=== PATIENT | male | born 1950 | race Caucasian/White ===

== ENCOUNTER → 2017-05-13 21:35 | Outpatient (CLI) | payer MEDICARE | END | disposition home or self-care (01) | LOC: D.LABREF 21:35 | DX: N39.0 Urinary tract infection, site not specified (principal); R31.9 Hematuria, unspecified ==

== ENCOUNTER 2017-05-23 05:56 | Day surgery (SDC) | payer MEDICARE ==
[2017-05-22 14:16] LABS: BASOPHILS 0.2 % (0-2); EOSINOPHILS 3.9 % (0-7); HEMATOCRIT 45.9 % (42.0-54.0); HEMOGLOBIN 15.8 g/dL (13.5-17.5); IMMATURE GRANULOCYTES 0.4 % (0-5); LYMPHOCYTES 33.4 % (15-50); MCH 32.3 pg (26.0-34.0); MCHC 34.4 g/dL (31.0-37.0); MCV 93.9 fL (80.0-100.0); MEAN PLATELET VOLUME 10.8 fL (7.4-10.4); MONOCYTES 8.6 % (2-11); NEUTROPHILS 53.5 % (40-80); PLATELET COUNT 184 10x3/uL (130-400); RBC 4.89 10x6/uL (4.20-6.10); RDW 12.9 % (11.5-14.5); WBC 8.2 10x3/uL (4.8-10.8)
[2017-05-22 14:25] LABS: APTT 25.5 SECONDS (22.8-39.4); INR 1.03 (0.85-1.17); PROTIME 13.1 SECONDS (11.6-15.0)
[~2017-05-23] VITALS: Ht 182.9 cm; Wt 90.3 kg
--- NOTE | ~2017-05-23 | OP ---
PATIENT NAME: EMMA KIM MEDICAL RECORD: [id number] :48 LOCATION:[facility] ADMISSION DATE: SURGEON: LEVI MANSFIELD MD DATE OF OPERATION: 05/23/2017 SURGEON: Levi Mansfield MD ANESTHESIA: MAC by Dr. Syed Cee. PREOPERATIVE DIAGNOSIS: Microscopic hematuria. FINDINGS: Obstructive benign prostatic hypertrophy with vascular prostatic urethra. Single ureteral orifices bilaterally. No bladder tumors. PROCEDURES: Cystoscopy. BLOOD LOSS: None. CLINICAL HISTORY: This is a 66-year-old male, former smoker, who had a left radical nephrectomy for renal cell carcinoma in 2010. He also had colon cancer resected in 1979. He was last living in [place], [place] before he came here. His urologist in [place] had started investigations for the microscopic hematuria. He has had a normal PSA level. He had a CT scan of the abdomen and pelvis in February 2017 in [place] and this was normal. He has never smoked. He had urine cytology, which was normal. He comes today to have cystoscopy to complete the hematuria workup. He does not have any significant voiding issues. He is not allergic to any medications and he was given Ance[employer] telephone lineman to the OR. DESCRIPTION OF PROCEDURE: The patient was given IV sedation. He was placed into dorsal lithotomy position and prepped and draped. Lidocaine jelly was inserted into the urethra. A 17-Seneg[place]e cystoscope with 30-degree lens was used for visualization. The penile urethra was normal with no strictures or tumors. Bulbar urethra was quite vascular. Going into the prostatic urethra, it was also quite vascular and there are some papillary inflammatory fronds on the prostatic urethra, which bled as we passed the scope by them. He has bilateral lateral lobe hyperplasia. Bladder neck is also somewhat elevated. Going into the bladder, single ureteral orifices are seen. No bladder tumors were seen. Bladder was mildly trabeculated. The bladder was emptied through the cystoscope sheath and then the scope was removed. I will start him on finasteride to shrink his prostate and the prostatic veins. I will see him back in 1 month's time to check on his symptoms. TRANSINT:[id number] Voice Confirmation ID: [id number] DOCUMENT ID: [id number] LEVI MANSFIELD MD at 1315 CC: [id number] DICTATION DATE: 05/23/17 1614 FLUE LINING DIPPER: 05/23/17 1718 [facility] 05/23/17 [place] [id number] [place] [id number]
[2017-05-23 12:54] VITALS: BP 123/77; Ht 182.9 cm; Wt 90.3 kg
== END 2017-05-23 17:35 | disposition home or self-care (01) ==
LOC: D.OPS 05:56 → D.PAN 11:25 → D.OPS 12:00 → D.PAN 12:00 → D.OPS 17:35
PROVIDERS: Anesthesiology
DX: R31.29 Other microscopic hematuria (principal); N40.1 Benign prostatic hyperplasia with lower urinary tract symptoms; N13.8 Other obstructive and reflux uropathy; N32.89 Other specified disorders of bladder; Z01.812 Encounter for preprocedural laboratory examination

== ENCOUNTER → 2017-08-05 12:34 | Outpatient (CLI) | payer MEDICARE ==
[~2017-08-05 12:34] MED LIST: PROSCAR5 MG PO
== END | disposition home or self-care (01) ==
LOC: D.US 12:34
DX: Z85.528 Personal history of other malignant neoplasm of kidney (principal)

== ENCOUNTER → 2017-09-16 10:24 | Outpatient (CLI) | payer MEDICARE ==
[2017-09-16 11:19] LABS: ANION GAP 11.4 mmol/L (8-16); CALCIUM 8.4 mg/dL (8.5-10.1); CARBON DIOXIDE 25.2 mmol/L (21.0-32.0); CREATININE - SERUM 1.4 mg/dL (0.6-1.3); POTASSIUM - SERUM 4.6 mmol/L (3.5-5.1)
== END | disposition home or self-care (01) ==
LOC: D.LAB 10:15
PROVIDERS: Internal Medicine Gastroenterology
DX: Z85.038 Personal history of other malignant neoplasm of large intestine (principal); Z85.528 Personal history of other malignant neoplasm of kidney

== ENCOUNTER 2017-10-09 10:55 | Day surgery (SDC) | payer MEDICARE ==
[~2017-10-09] VITALS: Ht 182.9 cm; Wt 88.6 kg
--- NOTE | ~2017-10-09 | OP ---
PATIENT NAME: EMMA KIM MEDICAL RECORD: [id number] :48 LOCATION:[facility] ADMISSION DATE: SURGEON: KIMBER ONEIL DO DATE OF OPERATION: 10/09/2017 PROCEDURE: Colonoscopy with polypectomy. INDICATIONS FOR PROCEDURE: Screening colonoscopy and history of malignant tumor of the colon. SCOPE: Olympus video pediatric colonoscope. MEDICATIONS: Propofol 250 mg IV per anesthesia. WITHDRAWAL TIME: 18 minutes. ESTIMATED BLOOD LOSS: Minimal. COMPLICATIONS: None. FINDINGS: Informed consent was given. The patient was made comfortable with the above medication. After reaching an adequate level of sedation by slow IV push, the patient was placed on his left side. A digital rectal examination was performed and revealed some benign prostatic hyperplasia. The endoscope was advanced under direct visualization through the rectum to the terminal ileum. The endoscope was slowly withdrawn and mucosa was carefully examined. The prep quality was excellent. There were 3 polyps visualized on today's examination. They were all benign appearing and sessile and ranged in size from 3-4 mm in diameter. They were all removed using hot forceps in 1 piece and completely retrieved. They were all located in the transverse colon. There was evidence of a prior intervention in the sigmoid region. Findings are consistent with an anastomosis from prior partial colectomy based on his history of malignant tumor. The retroflexion was performed in the rectum with visualization of grade I internal hemorrhoids without bleeding. The endoscope was then withdrawn from the patient. The patient tolerated the procedure well and there were no complications. IMPRESSION: 1. Three transverse polyps as described above removed using hot forceps. 2. Evidence of a prior partial colectomy. 3. Grade I internal hemorrhoids without active bleeding. PLAN AND RECOMMENDATIONS: 1. Discharge home when recovery parameters are met. 2. High fiber diet. 3. Continue current medications. 4. Recall colonoscopy in 3-5 years for ongoing surveillance based on his history of malignant tumor of the colon and personal history of polyps. TRANSINT:[id number] Voice Confirmation ID: [id number] DOCUMENT ID: [id number] OPERATIVE REPORT [id number] EMMA KIM KIMBER ONEIL DO at 1558 CC: [id number] DICTATION DATE: 10/09/17 1402 COUNSELOR MARRIAGE AND FAMILY: 10/09/17 1607 [facility] 10/09/17 [facility] [address] [place] [address]
[2017-10-09] MEDS ORDERED: PROSCAR5 MG PO (11:37)
[2017-10-09 11:58] VITALS: BP 115/81; Ht 182.9 cm; Wt 88.6 kg
[2017-10-09 12:06] LABS: BASOPHILS 0.1 % (0-2); EOSINOPHILS 2.9 % (0-7); HEMATOCRIT 42.8 % (42.0-54.0); HEMOGLOBIN 14.8 g/dL (13.5-17.5); IMMATURE GRANULOCYTES 0.1 % (0-5); LYMPHOCYTES 29.3 % (15-50); MCH 31.4 pg (26.0-34.0); MCHC 34.6 g/dL (31.0-37.0); MCV 90.7 fL (80.0-100.0); MONOCYTES 9.6 % (2-11); PLATELET COUNT 175 10x3/uL (130-400); RBC 4.72 10x6/uL (4.20-6.10); RDW 12.7 % (11.5-14.5); WBC 7.2 10x3/uL (4.8-10.8)
[2017-10-09 12:20] LABS: ANION GAP 14.1 mmol/L (8-16); CALCIUM 8.8 mg/dL (8.5-10.1); CARBON DIOXIDE 24.2 mmol/L (21.0-32.0); CREATININE - SERUM 1.3 mg/dL (0.6-1.3); POTASSIUM - SERUM 4.3 mmol/L (3.5-5.1)
== END 2017-10-09 15:32 | disposition home or self-care (01) ==
LOC: D.OPS 10:55
PROVIDERS: Anesthesiology
DX: Z12.11 Encounter for screening for malignant neoplasm of colon (principal); K64.8 Other hemorrhoids; K63.5 Polyp of colon; Z85.038 Personal history of other malignant neoplasm of large intestine; Z18.12 Retained nonmagnetic metal fragments

== ENCOUNTER → 2018-06-27 18:21 | Outpatient (CLI) | payer MEDICARE ==
[2017-10-09 11:58] VITALS: BMI 26.5
== END | disposition home or self-care (01) ==
LOC: D.LABREF 18:21
DX: R31.9 Hematuria, unspecified (principal)

== ENCOUNTER → 2018-07-03 07:58 | Outpatient (CLI) | payer MEDICARE ==
[2017-10-09 11:58] VITALS: BMI 26.5
[2018-07-03 08:46] LABS: CREATININE - SERUM 1.4 mg/dL (0.6-1.3)
== END | disposition home or self-care (01) ==
LOC: D.CT 07:58
PROVIDERS: Urology
DX: Z85.528 Personal history of other malignant neoplasm of kidney (principal)

== ENCOUNTER 2019-11-04 05:55 | Day surgery (SDC) | payer MEDICARE ==
[2019-11-03 13:18] LABS: HEMATOCRIT 44.7 % (42.0-54.0); LYMPHOCYTES 28.6 % (15-50); MCH 30.9 pg (26.0-34.0); MCHC 33.6 g/dL (31.0-37.0); MEAN PLATELET VOLUME 10.2 fL (7.4-10.4); PLATELET COUNT 202 10x3/uL (130-400); RBC 4.86 10x6/uL (4.20-6.10); WBC 7.5 10x3/uL (4.8-10.8)
[2019-11-03 13:21] LABS: ANION GAP 12.3 mmol/L (8-16); CALCIUM 8.8 mg/dL (8.5-10.1); CARBON DIOXIDE 26.2 mmol/L (21.0-32.0); CREATININE - SERUM 1.5 mg/dL (0.6-1.3); POTASSIUM - SERUM 4.5 mmol/L (3.5-5.1)
[2019-11-03 13:43] LABS: APTT 27.5 SECONDS (22.8-39.4); INR 1.01 (0.85-1.17); PROTIME 13.3 SECONDS (11.6-15.0)
[~2019-11-04] VITALS: Ht 182.9 cm; Wt 88.9 kg
[2019-11-04 06:45] VITALS: BP 119/73; Ht 182.9 cm; Wt 88.9 kg
[2019-11-04] MEDS ORDERED: HYDROCODON-ACE1 EAC7 PO (09:13)
[2019-11-04] MEDS ORDERED: CYCLOBENZAPRINE10 MG PO (09:13)
--- NOTE | 2019-11-04 09:49 | NUR ---
PT STATES PAIN IS A "5:. PT STATES HE DOES NOT DESIRE PAIN TREATMENT.
--- NOTE | 2019-11-04 10:07 | NUR ---
1005 PAIN PILL OFFERED, PT. DECLINES, STATES I DON'T TAKE MUCH PAIN MEDICINE.
== END 2019-11-04 15:15 | disposition home or self-care (01) ==
LOC: D.OPS 05:55 → D.PAN 08:00 → D.OPS 15:15
PROVIDERS: Anesthesiology; ATTEND Surgery
DX: K43.2 Incisional hernia without obstruction or gangrene (principal)

== ENCOUNTER 2020-01-26 13:17 | Inpatient (IN) | payer MEDICARE ==
[~2020-01-26] VITALS: Ht 182.9 cm; Wt 82.0 kg
[~2020-01-26 13:17] MED LIST changes: +CYCLOBENZAPRINE10 MG PO; +HYDROCODON-ACE1 EAC7 PO
--- NOTE | 2020-01-26 13:40 | NUR ---
REC'D TO ROOM 2208 AT THIS TIME AWKAE AND ALERT. RESP EVEN AND UNLABORED WITH NO DISTRESS NOTED. CAN EXPRESS NEEDS AND WANTS. NO C/O NOTED OR VOICED. AMBULATE WITH SLOW AND STEADY GAIT. HAS NOTED SWOLLEN AND REDNESS NOTED TO FACE AT THIS TIME. IV STARTED TO LEFT AC WITH NS INFUSING AT 40 ML/HR. AND C/L IN REACH AT BEDSIDE.
[2020-01-26 14:23] LABS: BASOPHILS 0.2 % (0-2); HEMATOCRIT 41.4 % (42.0-54.0); HEMOGLOBIN 13.8 g/dL (13.5-17.5); IMMATURE GRANULOCYTES 0.6 % (0-5); MCH 30.6 pg (26.0-34.0); MCHC 33.3 g/dL (31.0-37.0); MCV 91.8 fL (80.0-100.0); MEAN PLATELET VOLUME 10.5 fL (7.4-10.4); MONOCYTES 8.9 % (2-11); NEUTROPHILS 61.3 % (40-80); PLATELET COUNT 183 10x3/uL (130-400); RBC 4.51 10x6/uL (4.20-6.10); RDW 13.5 % (11.5-14.5); WBC 5.1 10x3/uL (4.8-10.8)
[2020-01-26 14:44] LABS: ANION GAP 12.5 mmol/L (8-16); CALCIUM 8.5 mg/dL (8.5-10.1); CREATININE - SERUM 1.4 mg/dL (0.6-1.3); POTASSIUM - SERUM 4.5 mmol/L (3.5-5.1)
[2020-01-26 14:48] LABS: ALBUMIN 3.5 g/dL (3.4-5.0); BILIRUBIN - TOTAL 0.45 mg/dL (0.2-1.3); PROTEIN - SERUM 6.6 g/dL (6.4-8.2); THYROID STIMULATING HORMONE 1.45 uIU/mL (0.36-3.74)
[2020-01-26 15:09] VITALS: BP 131/77; BMI 25.4
--- NOTE | 2020-01-26 15:16 | NUR ---
ASSESSMENT PER ADMIT FLOW SHEET.PATIENT IS WITHOUT NEEDS.CALL LIGHT IN REACH
[2020-01-26 15:29] LABS: ERYTHROCYTE SEDIMENTATION RATE 6 mm/hr (0-20)
[2020-01-26 20:00] VITALS: BP 129/74
--- NOTE | 2020-01-26 20:00 | NUR ---
A&O X 4, AMBULATES INDEPENDENTLY. REDNESS AND SWELLING TO FACE, PRIMARILY ON CHEEKS AND AROUND EYES. RED, RASH LIKE AREA NOTED ON UPPER BACK AND CHEST, MILDLY ON BILAT UPPER EXTREMETIES. STATES HE THINKS IT'S FROM A SUNBURN. PT REPORTS THIS IS IMPROVED COMPARED TO ADMISSION. DENIES PAIN, REPORTS OCCASIONAL ITCHING. REMOVED FROM IV FLUIDS AND IV COVERED FOR SHOWER, NO FURTHER NEEDS VOICED. CTM.
--- NOTE | 2020-01-26 23:37 | NUR ---
I have reviewed this patient and I concur with the Shift Assessment completed by the Licensed Practical Nurse today this shift.
[2020-01-27] VITALS: BP 116/68
[2020-01-27 04:00] VITALS: BP 112/61
[2020-01-27 05:28] LABS: BASOPHILS 0 % (0-2); EOSINOPHILS 0 % (0-7); HEMATOCRIT 40.9 % (42.0-54.0); HEMOGLOBIN 13.6 g/dL (13.5-17.5); IMMATURE GRANULOCYTES 0.4 % (0-5); LYMPHOCYTES 17.5 % (15-50); MCH 30.3 pg (26.0-34.0); MCHC 33.3 g/dL (31.0-37.0); MCV 91.1 fL (80.0-100.0); MEAN PLATELET VOLUME 10.5 fL (7.4-10.4); MONOCYTES 1.1 % (2-11); PLATELET COUNT 210 10x3/uL (130-400); RBC 4.49 10x6/uL (4.20-6.10); RDW 13.5 % (11.5-14.5); WBC 5.7 10x3/uL (4.8-10.8)
[2020-01-27 05:53] LABS: ALBUMIN 3.6 g/dL (3.4-5.0); ANION GAP 13.2 mmol/L (8-16); BILIRUBIN - TOTAL 0.5 mg/dL (0.2-1.3); C-REACTIVE PROTEIN 0.7 mg/dL (0.0-0.9); CALCIUM 8.5 mg/dL (8.5-10.1); CARBON DIOXIDE 24.2 mmol/L (21.0-32.0); CREATININE - SERUM 1.3 mg/dL (0.6-1.3); MAGNESIUM - SERUM 2.2 mg/dL (1.8-2.4); PHOSPHOROUS 3.6 mg/dL (2.5-4.9); POTASSIUM - SERUM 4.4 mmol/L (3.5-5.1); PROTEIN - SERUM 7.2 g/dL (6.4-8.2)
[2020-01-27 05:59] LABS: BILIRUBIN NEGATIVE (NEGATIVE); KETONE NEGATIVE (NEGATIVE); NITRITE NEGATIVE (NEGATIVE); UROBILINOGEN NORMAL (NORMAL)
[2020-01-27 07:19] LABS: ERYTHROCYTE SEDIMENTATION RATE 6 mm/hr (0-20)
[2020-01-27 09:12] LABS: ANA REFLEX - DIRECT Negative (Negative)
[2020-01-27 09:58] VITALS: BP 127/70
[2020-01-27 12:47] VITALS: BP 134/93
[2020-01-27 14:13] VITALS: Ht 182.9 cm; Wt 82.0 kg
[2020-01-27 18:06] VITALS: BP 133/64
[2020-01-27 20:00] VITALS: BP 124/67
[2020-01-28] VITALS: BP 105/69
[2020-01-28 04:00] VITALS: BP 118/65
[2020-01-28 06:43] LABS: ALBUMIN 2.9 g/dL (3.4-5.0); ANION GAP 13.3 mmol/L (8-16); BILIRUBIN - TOTAL 0.42 mg/dL (0.2-1.3); CALCIUM 8.4 mg/dL (8.5-10.1); CARBON DIOXIDE 22.9 mmol/L (21.0-32.0); CREATININE - SERUM 1.2 mg/dL (0.6-1.3); MAGNESIUM - SERUM 2.2 mg/dL (1.8-2.4); PHOSPHOROUS 3.1 mg/dL (2.5-4.9); POTASSIUM - SERUM 4.2 mmol/L (3.5-5.1)
[2020-01-28 07:08] LABS: HEMATOCRIT 36.5 % (42.0-54.0); HEMOGLOBIN 12.1 g/dL (13.5-17.5); LYMPHOCYTES 10.9 % (15-50); MCH 30.6 pg (26.0-34.0); MCHC 33.2 g/dL (31.0-37.0); MCV 92.2 fL (80.0-100.0); MEAN PLATELET VOLUME 10.7 fL (7.4-10.4); NEUTROPHILS 86.3 % (40-80); RBC 3.96 10x6/uL (4.20-6.10); RDW 13.9 % (11.5-14.5)
[2020-01-28 07:10] LABS: PLATELET COUNT 161 10x3/uL (130-400)
[2020-01-28 09:00] VITALS: BP 134/76
--- NOTE | 2020-01-28 12:00 | NUR ---
PATIENT UPSET AND STATED THAT HE WANTS TO KNOW WHAT RESULTS ARE OF HIS UA. EXPLAINED TO PATIENT I WAS NOT ABLE TO SEE RESULTS. CALLED LAB AT THIS TIME. WAS TOLD THAT THERE WAS URINE IN THERE FOR YESTERDAY BUT NO ORDERS TO DO ANYTHING WITH. I TOLD PATIENT TO SPEAK WITH ASSESSMENT CONSULTANT WHEN SHE COMES IN TO SEE IF SHE WANTED TO ORDER ONE. VERBALIZED UNDERSTANDING. IV INTACT. CALL LIGHT WITHIN REACH.
--- NOTE | 2020-01-28 12:30 | NUR ---
JUANA BARONE STATED THAT PATIENT HAD ALREADY HAD A UA AND THAT SHE TALKED TO PATIENT ABOUT IT AND THAT THE URINE WAS DONE. STATED THAT PATIENT WILL BE DISCHARGED.
[2020-01-28] MEDS ORDERED: PEPCID PO (13:07)
[2020-01-28] MEDS ORDERED: FEXOFENADINE HC60 MG PO (13:07)
[2020-01-28] MEDS ORDERED: KENALOG 0.1 % 115 GM TOPICAL (13:08)
[2020-01-28] MEDS ORDERED: PREDNISONE10 MG PO (13:08)
[2020-01-28] MEDS ORDERED: MUPIROCIN22 GM NASAL (13:08)
[2020-01-28] MEDS ORDERED: FLORAJEN3 CAPS460 MG PO (13:08)
[2020-01-28] MEDS ORDERED: HYDROCORTISONE30 G9 TOPICAL (13:08)
[2020-01-28] MEDS ORDERED: DOXYCYCLINE HY100 M2 PO (13:09)
[2020-01-28 13:13] VITALS: BP 154/73
--- NOTE | 2020-01-28 15:49 | NUR ---
PATIENT IN BED WITH NO COMPLAINTS. WAITING FOR DC INSTRUCTIONS. CALL LIGHT WITHIN REACH.
--- NOTE | 2020-01-28 16:30 | NUR ---
PATIENT RECIEVED DC INSTRUCTIONS. VERBALIZED UNDERSTANDING. NO QUESTIONS AT THIS TIME. IV REMOVED WITH CATH TIP INTACT. FAMILY AT SIDE. WALKED OUT WITH WELT TRIMMING MACHINE OPERATOR. REFUSED WC AT THIS TIME.
== END 2020-01-28 17:24 | disposition home or self-care (01) | DRG 603 ==
LOC: D.MS 13:17
PROVIDERS: Emergency Medicine; ADMIT Family Medicine; ATTEND Family Medicine
DX: A46 Erysipelas (principal); L03.211 Cellulitis of face; N40.0 Benign prostatic hyperplasia without lower urinary tract symptoms; I12.9 Hypertensive chronic kidney disease with stage 1 through stage 4 chronic kidney disease, or unspecified chronic kidney disease; N18.9 Chronic kidney disease, unspecified; Z85.038 Personal history of other malignant neoplasm of large intestine

== ENCOUNTER → 2020-03-09 08:43 | Outpatient (CLI) | payer MEDICARE ==
[2020-01-27 14:13] VITALS: BMI 24.5
[~2020-03-09 08:43] MED LIST changes: +DOXYCYCLINE HY100 M2 PO; +FEXOFENADINE HC60 MG PO; +FLORAJEN3 CAPS460 MG PO; +HYDROCORTISONE30 G9 TOPICAL; +KENALOG 0.1 % 115 GM TOPICAL; +MUPIROCIN22 GM NASAL; +PEPCID PO; +PREDNISONE10 MG PO
== END | disposition home or self-care (01) ==
LOC: D.CT 08:43
PROVIDERS: ATTEND Urology
DX: Z85.038 Personal history of other malignant neoplasm of large intestine (principal)